=== PATIENT | male | born 1980 | race Caucasian/White ===

== ENCOUNTER 2019-04-08 17:52 | Emergency (ER) | payer OTHER ==
[2019-04-08] MEDS: IBUPROFEN 800 MG TAB PO (19:10)
[2019-04-08] MEDS: METHOCARBAMOL 750 MG TAB PO (19:10)
== END 2019-04-08 20:06 | disposition home or self-care (01) ==
LOC: FTE 20:06
DX: S62.620A Displaced fracture of middle phalanx of right index finger, initial encounter for closed fracture (principal); M62.838 Other muscle spasm; V13.4XXA Pedal cycle driver injured in collision with car, pick-up truck or van in traffic accident, initial encounter; Z87.891 Personal history of nicotine dependence
CPT/HCPCS: 29130; 72040; 73140; 99284-25